=== PATIENT | female | born 1970 | race Caucasian/White ===

== ENCOUNTER 2024-02-20 18:37 | Emergency (ER) | payer SELFPAY ==
[2024-02-20 18:40] VITALS: BP 160/88
[2024-02-20 19:07] LABS: % Basophils 0.7 % (0-2); % Eosinophils 1.5 % (0-6); % Immature Granulocytes 0.3 % (0-0.5); % Lymphocytes 29.7 % (20.5-51.1); % Monocytes 5.6 % (1.7-9.3); % Neutrophils 62.2 % (42.2-75.2); Absolute Basophils 0.1 10^3/uL (0-0.2); Absolute Eosinophils 0.1 10^3/uL (0-0.7); Absolute Lymphocytes 2.2 10^3/uL (1.2-3.4); Absolute Monocytes 0.4 10^3/uL (0.1-0.6); Absolute Neutrophils 4.5 10^3/uL (1.4-6.5); Hematocrit 35.1 % (37.0-47.0); Hemoglobin 11.9 g/dL (12.0-16.0); Mean Corp Hgb Conc. 33.9 g/dL (33.0-37.0); Mean Corpuscular Hgb 28.9 pg (27.0-31.0); Mean Corpuscular Volume 85.2 fL (81.0-99.0); Nucleated Red Blood Cells % 0 %; Platelet Count 327 10^3/uL (130-400); Red Blood Cell Count 4.12 10^6/uL (4.20-5.40); Red Cell Dist. Width 12.6 % (11.5-14.5); White Blood Cell Count 7.3 10^3/uL (4.8-10.8)
[2024-02-20 19:25] LABS: APTT 26.9 Sec (23.4-35.0)
[2024-02-20 19:30] LABS: ALT (SGPT) 89 U/L (0-35); AST (SGOT) 230 U/L (14-36); Albumin 4.5 g/dl (3.5-5.0); Alkaline Phosphatase 157 U/L (38-126); Blood Urea Nitrogen 26 mg/dl (7-17); Carbon Dioxide 23 mmol/L (22-30); Chloride 102 mmol/L (98-107); Glucose 268 mg/dl (70-99); Potassium 4.5 mmol/L (3.5-5.1); Sodium 139 mmol/L (135-145); Total Bilirubin 0.8 mg/dl (0.2-1.3); Total Protein 7.1 g/dl (6.3-8.2)
[2024-02-20 19:35] LABS: NT-proBNP 122 pg/ml; Troponin I < 0.012 ng/ml
[2024-02-20 20:34] VITALS: BP 128/73
--- NOTE | 2024-02-20 20:53 | ED.GENMED ---
History of Present Illness
General
Chief Complaint: Chest Pain
Source: patient
Exam Limitations: none
Time Seen by Provider: 02/20/24 20:37
History of Present Illness
History of Present Illness:
53-year-old female with history [id number] diabetes, hypertension, hyperlipidemia, depression presents with onset of epigastric and substernal chest discomfort. It was a pressure sensation that lasted around 25 to 30 minutes with
associated diaphoresis and nausea. The pain radiated to the back and shoulders. She was slightly short of breath during this episode. She did not eat anything immediately prior to the onset of her symptoms. No leg swelling calf pain. No recent
travel. No other complaints
Past History
Past History
ED Past Medical History: Hypercholesterolemia, IDDM (Chronically poorly controlled), Hypothyroidism and Other (Obesity)
ED Past Surgical History: Appendectomy (10/17/2017), Bowel resection (Gastric bypass in July 2017), Orthopedic (Total knee replacement) and Other (Bariatric surgery)
Social History
Tobacco: Non-smoker
Alcohol: Occasional (Rare)
Drug: None
Personal:
Living: with family
Employment: Not employed
Family History
Family History: Other (Noncontributory)
Phy Exam
Physical Exam
Physical Exam:
General: Well-appearing female no acute respiratory distress
HEENT: Normocephalic atraumatic
Heart: Regular rate and rhythm no murmurs
Lungs: Clear no wheeze
Abdomen soft nontender nondistended no guarding or rebound normal bowel sounds negative Blackmon's
Extremities: No cyanosis or edema
Skin: Warm no rash
Scores
Heart Score for Chest Pain Patients
STEMI patient?: No
History: Slightly or Non-Suspicious
ECG: Normal
Age: >45 - <65 years
Risk Factors: >/= 3 Risk Factors or History of CAD
Troponin: </= Normal Limit
Heart Score for Chest Pain Patients: 3
Heart Score Risk: 2.5% MACE over next 6 weeks
Course
Orders/Labs/Results
Orders:
Orders
02/20/24 18:38
ECG [Electrocardiogram (*1)] Urgent
Reason for Study: Chest Pain
EKG- Treatment ONCE
02/20/24 18:43
CR Chest - 2 Views Urgent
Comment:
Reason For Exam: SOB
02/20/24 18:58
Complete Blood Count/With Diff Urgent
Comprehensive Metabolic Panel Urgent
NT-proBNP Urgent
PTT Urgent
Troponin I Urgent
02/20/24 20:52
US Abdomen Complete/Upper Urgent
Comment:
Reason For Exam: epigastric pain, elevated LFT
02/20/24 22:17
Troponin I Urgent
Abnormal Lab Results
02/20/24
18:58
RBC 4.12 L 10^6/uL
(4.20-5.40)
Hgb 11.9 L g/dL
(12.0-16.0)
Hct 35.1 L %
(37.0-47.0)
BUN 26 H mg/dl
(7-17)
Creatinine 1.5 H mg/dL
(0.6-1.0)
Glucose 268 H mg/dl
(70-99)
AST 230 H U/L
(14-36)
ALT 89 H U/L
(0-35)
Alkaline Phosphatase 157 H U/L
(38-126)
02/20/24 18:58
02/20/24 18:58
Vital Signs
Initial and Last Documented VS:
Initial Vital Signs
Temp Pulse Resp BP Pulse Ox
98.6 F 87 20 160/88 97
02/20/24 18:40 02/20/24 18:40 02/20/24 18:40 02/20/24 18:40 02/20/24 18:40
Last Documented Vital Signs
Temp Pulse Resp BP Pulse Ox
98.6 F 75 15 128/70 97
02/20/24 18:40 02/20/24 21:15 02/20/24 21:15 02/20/24 21:00 02/20/24 21:15
MDM/Problems Addressed
Differential Diagnosis Includes:
Chest pain and upper abdominal pain. Consider ACS. Pain is now resolved. Would not suspect PE. Consider biliary colic.
LFTs and blood work slightly elevated. Troponin initially is undetectable. Chest x-ray is clear. Will repeat troponin ultrasound pending
*Critical Care Note
Total Time (30-74mins, 75-104mins- exclusive of procedures): Not Applicable
Update Note
Update Note:
Initial and repeat troponins undetectable. Patient remains pain-free upon reassessment. Ultrasound does demonstrate gallstones without signs of cholecystitis. I suspect patient's discomfort today may have been biliary colic. She remains
pain-free. Will discharge with instructions for bland diet and general surgery follow-up.
ED Attending Note
-
Portions of this chart may have been created with voice recognition software.� Occasional wrong word or��sound alike� substitutions may have occurred due to the inherent limitations of voice recognition software.
Discharge Plan
Departure
Patient Disposition: Home (Routine Discharge)
Date of Disposition: 02/20/24
Time of Disposition: 22:59
Patient with high blood pressure during this ER visit?: No
Discharge Problem:
Gallstone
Instructions: Gallstones ED
Prescriptions:
No Action
carisoprodol 350 MG tablet
350 mg PO PRN PRN (Reason: pain)
bupropion HCl 100 MG tablet
300 mg PO DAILY
levothyroxine 88 MCG tablet
1 dose PO DAILY
pantoprazole 40 MG tablet,delayed release (DR/EC)
40 mg PO DAILY
simvastatin 20 MG tablet
20 mg PO HS
gabapentin 300 MG capsule
300 mg PO TID
escitalopram oxalate 20 MG tablet
30 mg PO DAILY
glipizide 5 MG tablet extended release 24hr
10 mg PO DAILY
hyoscyamine sulfate 0.125 MG tablet
0.125 mg PO TID
Referrals:
Deyvi Conroy MD [Active] -
Ly Batista DO [Family Provider] -
Activity Restrictions/Additional Instructions:
Drink plenty of fluids. Avoid greasy foods. Return here for increasing pain fever or vomiting otherwise follow-up with surgeon
Interventions
Interventions:
*Risk Screen - Suicide Last Done: 02/20/24 18:40
*General Assessment Last Done: 02/20/24 18:40
*Neglect/Abuse Screening Last Done: 02/20/24 21:29
ED- Cardiac Assessment Last Done: 02/20/24 20:36
Discharge Date and Time
Print Language: INDONESIAN
[2024-02-20 21:00] VITALS: BP 128/70
[2024-02-20 22:16] VITALS: BP 133/76
[2024-02-20 22:46] LABS: Troponin I < 0.012 ng/ml
[2024-02-20 23:00] VITALS: BP 130/74
== END 2024-02-20 23:11 | disposition home or self-care (01) ==
LOC: EMR 18:37
PROVIDERS: Emergency Medicine; Physician Assistant; EMERGENCY PHYSICIAN Emergency Medicine; FAMILY PHYSICIAN Family Medicine
DX: K80.20 Calculus of gallbladder without cholecystitis without obstruction (principal); E11.9 Type 2 diabetes mellitus without complications; I10 Essential (primary) hypertension; E78.00 Pure hypercholesterolemia, unspecified; E03.9 Hypothyroidism, unspecified; E66.9 Obesity, unspecified; F32.A Depression, unspecified; I25.10 Atherosclerotic heart disease of native coronary artery without angina pectoris; Z90.49 Acquired absence of other specified parts of digestive tract; Z96.659 Presence of unspecified artificial knee joint; Z98.84 Bariatric surgery status
CPT/HCPCS: 99284; 71046; 76700; 80053; 83880; 84484; 85025; 85730; 93005

== ENCOUNTER 2024-07-05 06:46 | Day surgery (SDC) | payer OTHER, SELFPAY ==
[2024-07-05] VITALS (10 sets, daily range): BP systolic 115–167; BP diastolic 36–80; BMI 23.5
[2024-07-05 12:42] LABS: Glucose - Point of Care 163 mg/dl (70-99)
[2024-07-05] MEDS: TYLENOL 1000 MG PO (12:52)
[2024-07-05] MEDS: IC GREEN 2.5 MG IV (12:53)
--- NOTE | 2024-07-05 16:28 | W.IMMPOSTOP ---
Surgical Immed Post Op Note
-
Primary Surgeon: Sid
Assisting: Gabrielle PARRY
Pre-op Diagnosis: Chronic calculous cholecystitis
Post-op Diagnosis: Same
Procedure Performed: Robot assisted laparoscopic cholecystectomy with cholangiogram
Anesthesia Type: GETA
Specimen / Cultures: Gallbladder
Estimated Blood Loss: 10cc
Complications: None immediate
Operative Findings: Soflty distended gallbladder with mild fibrotic scarring and dense omental adhesions to the fundus and stones in the cystic duct milked retrograde into the gallbladder; cholangiogram without obvious filling defects,
opacification of CBD/CHD/duodenum
--- NOTE | 2024-07-05 16:31 | OR.RPT ---
Operative Report
Operative Report
Primary Surgeon: Sid
Assisting: Gabrielle PARRY
Pre-op Diagnosis: Chronic calculous cholecystitis
Post-op Diagnosis: Same
Procedure Performed: Robot assisted laparoscopic cholecystectomy with cholangiogram
Anesthesia Type: GETA
Specimen / Cultures: Gallbladder
Estimated Blood Loss: 10cc
Complications: None immediate
Operative Findings: Soflty distended gallbladder with mild fibrotic scarring and dense omental adhesions to the fundus and stones in the cystic duct milked retrograde into the gallbladder; cholangiogram without obvious filling defects,
opacification of CBD/CHD/duodenum
Date of Surgery:� 07/05/24
Indications: This 54F developed biliary colic and had elevated liver enzymes as well as a history of duodenal switch. Laparoscopic cholecystectomy with cholangiogram with robotic assist was elected.
Description of procedure: The patient was placed on the operating table in the supine position. General anesthesia was induced. A time-out was completed verifying correct patient, procedure, site, positioning, and special equipment prior to
beginning this procedure. An orogastric tube was placed. The abdomen was prepped and draped in the usual sterile fashion. A stab incision was made in left upper quadrant and the Veress needle was inserted. Proper position was confirmed by aspiration
and saline meniscus test. The abdomen was insufflated with carbon dioxide to a pressure of 12mmHg. The patient tolerated insufflation well.
A 8mm trocar was then inserted above the umbilicus through the existing hernia defect. The laparoscope was inserted and the abdomen inspected. No injuries from initial trocar placement or Veress needle insertion were noted. Additional 8mm trocars
were then inserted in the following locations: two in the right lower quadrant and to the left of the umbilicus and just above. The abdomen was inspected and no abnormalities were found. The table was placed in the reverse Trendelenburg position
with the right side up. The dome of the gallbladder was grasped with an atraumatic grasper and retracted over the dome of the liver. Dense omental adhesions were carefully teased down from the lateral fundus with gentle blunt sweeps and judicious
hook cautery. The infundibulum was then grasped with an atraumatic grasper and retracted toward the right lower quadrant. This maneuver exposed Calot�s triangle. The peritoneum overlying the gallbladder infundibulum was then incised and the cystic
duct and cystic artery identified and circumferentially dissected so that a clear view of the liver was achieved through a window between the cystic duct an cystic artery. At this time, the only two structures going into the gallbladder were the
cystic artery and cystic duct. The common duct was identified with ICG and protected. Stones in the cystic duct were milked retrograde into the gallbladder.
A gui was made in the skin of the abdominal wall and a cholangiogram catheter was passed into the abdomen. A gui was made in the cystic duct and the catheter was threaded and a cholangiogram was obtained. There was good opacification of bile ducts
and duodenum without obvious filling defects. The catheter was removed.
The cystic duct was then doubly clipped and divided. The cystic artery was controlled with bipolar and divided. The gallbladder was then dissected from its peritoneal attachments by electrocautery. The posterior plane was mildly fibrotic. The
gallbladder was removed using an endoscopic retrieval bag placed through the umbilical port. The gallbladder was passed off the table as a specimen. The gallbladder fossa was closely inspected. There was no evidence of bleeding from the gallbladder
fossa or cystic artery or leakage of the bile from the cystic duct stump. The umbilical trocar site was closed at the fascial level with 2-0 PDS. Secondary trocars were removed under direct vision and noted to be hemostatic. The abdomen was allowed
to collapse. The skin was closed with subcuticular sutures of 4-0 monocryl and topical skin adhesive. The orogastric tube was removed.
The patient tolerated the procedure well and was taken to the postanesthesia care unit in stable condition.
[2024-07-05] MEDS: ZOFRAN 4 MG IV (17:35)
[2024-07-05] MEDS: DILAUDID 0.25 MG IV (17:38)
[2024-07-05 17:56] LABS: Glucose - Point of Care 181 mg/dl (70-99)
== END 2024-07-05 18:43 | disposition home or self-care (01) ==
LOC: SDS 06:46
PROVIDERS: ATTENDING PHYSICIAN Surgery; FAMILY PHYSICIAN Family Medicine
DX: K80.10 Calculus of gallbladder with chronic cholecystitis without obstruction (principal); K66.0 Peritoneal adhesions (postprocedural) (postinfection); R74.8 Abnormal levels of other serum enzymes
CPT/HCPCS: 47563; 88304; 74300; 76000; 82962